=== PATIENT | female | born 1980 | race African-American/Black ===

== ENCOUNTER 2019-01-30 16:53 | Outpatient (CLI) | payer OTHER, MEDICAID | END 2019-01-30 18:07 | disposition home or self-care (01) | LOC: LC 16:53 | PROVIDERS: ATTEND Obstetrics & Gynecology | PROC: 4A1HXCZ Monitoring of Products of Conception, Cardiac Rate, External Approach (ICD-10-PCS; principal; 2019-01-30) | DX: Z34.93 Encounter for supervision of normal pregnancy, unspecified, third trimester (principal) | CPT/HCPCS: 59025 ==

== ENCOUNTER 2019-02-02 15:38 | Outpatient (CLI) | payer OTHER, MEDICAID ==
--- NOTE | 2019-02-02 15:47 | Non Stress Test Report ---
Non Stress Test Datetime Report Generated by CPN: 02/02/2019 15:46 DEMOGRAPHIC EGA NST: 36.4 INDICATION Indication for Study: Ordered by Provider; Other Indication for Study (NST) Other: repeat NST MONITORING Monitor Explained: Monitor Explained; Test Explained; Patient Verbalized Understanding Time on Monitor: 01/30/2019 17:41 Time off Monitor: 01/30/2019 18:02 NST Duration: 21 NST INTERVENTIONS NST Interventions: PO Hydration Physician Notified NST: Dr. Younger BABY A: [id number] BABY A Movement : Present Contraction Frequency : none FHR Baseline : 150 Accelerations : 15X15 Decelerations : None Variability : Moderate 6-25bpm NST Review: Meets Criteria for Reactive NST NST Review and Verified By : ARNALDO Logan NST Results: Reactive NST REPORT Report Trigger: Send Report
--- NOTE | 2019-02-02 16:57 | Non Stress Test Report ---
Non Stress Test Datetime Report Generated by CPN: 02/02/2019 16:56 DEMOGRAPHIC EGA NST: 37.0 INDICATION Indication for Study: Ordered by Provider MONITORING Monitor Explained: Monitor Explained; Test Explained; Patient Verbalized Understanding Time on Monitor: 02/02/2019 16:24 Time off Monitor: 02/02/2019 16:45 NST Duration: 21 NST INTERVENTIONS Physician Notified NST: A.Latif, CNM BABY A Movement : Present Contraction Frequency : None FHR Baseline : 155 Accelerations : 15X15 Decelerations : None Variability : Moderate 6-25bpm NST Review: Meets Criteria for Reactive NST NST Review and Verified By : sautry NST Results: Reactive NST REPORT Report Trigger: Send Report
== END 2019-02-02 16:53 | disposition home or self-care (01) ==
LOC: LC 15:38
PROVIDERS: ATTEND Obstetrics & Gynecology Gynecology
PROC: 4A1HXCZ Monitoring of Products of Conception, Cardiac Rate, External Approach (ICD-10-PCS; principal; 2019-02-02)
DX: Z34.93 Encounter for supervision of normal pregnancy, unspecified, third trimester (principal)

== ENCOUNTER 2019-02-12 12:08 | Outpatient (CLI) | payer OTHER, MEDICAID ==
[2019-02-12 12:38] LABS: APPEARANCE,URINE CLOUDY; BILIRUBIN,URINE NEGATIVE (NEGATIVE); GLUCOSE, URINE >=500 mg/dL (NEGATIVE); KETONES,URINE NEGATIVE (NEGATIVE); LEUKOCYTE ESTERASE,URINE MODERATE (NEGATIVE); NITRITE,URINE NEGATIVE (NEGATIVE); PROTEIN,URINE 30 mg/dL (NEGATIVE); URINE SPECIFIC GRAVITY 1.028
[2019-02-12 12:49] LABS: COLOR,URINE DARK YELLOW
[2019-02-12 12:54] LABS: URINE AMPHETAMINES SCREEN NEGATIVE; URINE BARBITURATES SCREEN NEGATIVE; URINE BENZODIAZEPINES SCREEN NEGATIVE; URINE COCAINE SCREEN NEGATIVE; URINE MARIJUANA (THC) SCREEN NEGATIVE; URINE METHADONE SCREEN NEGATIVE; URINE PHENCYCLIDINE SCREEN NEGATIVE
[2019-02-12 13:32] LABS: EPITHELIALS (WET MOUNT) 3+ EPITHELIALS SEEN; RBCS (WET MOUNT) FEW RBCS SEEN; T.VAGINALIS (WET MOUNT) NO TRICHOMONAS SEEN; WBCS (WET MOUNT) 1+ WBCS SEEN; YEAST (WET MOUNT) NO YEAST SEEN
--- NOTE | 2019-02-12 13:53 | Non Stress Test Report ---
Non Stress Test Datetime Report Generated by CPN: 02/12/2019 13:53 DEMOGRAPHIC EGA NST: 38.3 INDICATION Indication for Study: Ordered by Provider MONITORING Monitor Explained: Monitor Explained; Test Explained; Patient Verbalized Understanding Time on Monitor: 02/12/2019 13:26 Time off Monitor: 02/12/2019 13:46 NST Duration: 20 NST INTERVENTIONS NST Interventions: PO Hydration Physician Notified NST: Dr. Baltazar BABY A: [id number] BABY A Movement : Present Movement : Present Contraction Frequency : 4-35 FHR Baseline : 140 Accelerations : 15X15 Decelerations : Variable Variability : Moderate 6-25bpm NST Review: Meets Criteria for Reactive NST NST Review: Meets Criteria for Reactive NST NST Review and Verified By : Giuseppe Hernandez RN NST Results: Reactive NST Results: Reactive NST REPORT Report Trigger: Send Report
== END 2019-02-12 13:55 | disposition home or self-care (01) ==
LOC: LC 12:08
PROVIDERS: ATTEND Obstetrics & Gynecology
DX: O47.1 False labor at or after 37 completed weeks of gestation (principal); O36.8330 Maternal care for abnormalities of the fetal heart rate or rhythm, third trimester, not applicable or unspecified; O09.523 Supervision of elderly multigravida, third trimester; O99.283 Endocrine, nutritional and metabolic diseases complicating pregnancy, third trimester; E86.0 Dehydration; Z3A.38 38 weeks gestation of pregnancy
CPT/HCPCS: 59025; 80307; 81005; 87210

== ENCOUNTER 2019-02-13 02:43 | Inpatient (IN) | payer OTHER, MEDICAID ==
[2019-02-13 03:09] LABS: APPEARANCE,URINE CLOUDY; BILIRUBIN,URINE NEGATIVE (NEGATIVE); COLOR,URINE YELLOW; GLUCOSE, URINE 150 mg/dL (NEGATIVE); KETONES,URINE NEGATIVE (NEGATIVE); LEUKOCYTE ESTERASE,URINE NEGATIVE (NEGATIVE); NITRITE,URINE NEGATIVE (NEGATIVE); PROTEIN,URINE 100 mg/dL (NEGATIVE); URINE SPECIFIC GRAVITY 1.013
[2019-02-13] MEDS ORDERED: RINGERS SOLUTION,LACTATED 1,000 ML IV PRN ×2 (03:19→06:31)
[2019-02-13 03:31] LABS: URINE AMPHETAMINES SCREEN NEGATIVE; URINE BARBITURATES SCREEN NEGATIVE; URINE BENZODIAZEPINES SCREEN NEGATIVE; URINE COCAINE SCREEN NEGATIVE; URINE MARIJUANA (THC) SCREEN NEGATIVE; URINE METHADONE SCREEN NEGATIVE; URINE PHENCYCLIDINE SCREEN NEGATIVE
[2019-02-13 03:50] LABS: ABSOLUTE EOSINOPHILS # (AUTO) 0.1 10^3/uL (0.0-0.6); ABSOLUTE LYMPHOCYTES (AUTO) 2.3 10^3/uL (0.5-4.7); ABSOLUTE MONOCYTES (AUTO) 0.8 10^3/uL (0.1-1.4); ABSOLUTE NEUT (AUTO) 4.8 10^3/uL (1.7-8.2); BASOPHILS % (AUTO) 0.2 % (0-2); EOSINOPHILS % (AUTO) 1.7 % (0-6); HEMATOCRIT 35.1 % (36.0-47.0); HEMOGLOBIN 11.8 g/dL (12.0-15.5); LYMPHOCYTES % (AUTO) 28.9 % (13-45); MEAN CORPUSCULAR HEMOGLOBIN 29.1 pg (27.0-33.4); MEAN CORPUSCULAR HGB CONC 33.7 g/dL (32.0-36.0); MEAN CORPUSCULAR VOLUME 86 fl (80-97); MONOCYTES % (AUTO) 9.9 % (3-13); PLATELET COUNT 240 10^3/uL (150-450); RED BLOOD COUNT 4.07 10^6/uL (3.72-5.28); RED CELL DISTRIBUTION WIDTH 14.4 % (11.5-14.0); SEGMENTED NEUTROPHILS % (AUTO) 59.3 % (42-78); TOTAL CELLS COUNTED % (AUTO) 100 %
[2019-02-13] MEDS ORDERED: PENICILLIN G POTASSIUM 5,000,000 UNIT in DEXTROSE 5%-WATER 100 ML IV ONE (04:08)
[2019-02-13] MEDS ORDERED: PENICILLIN G-K 5 MILLION UNIT VIAL ONE (04:11)
--- NOTE | 2019-02-13 04:22 | Admission Physical ---
Datetime Report Generated by CPN: 02/13/2019 04:22 CURRENT ADMISSION Chief Complaint: Suspected Ruptured Membranes Indication for Induction: Not Applicable Admit Impression : Term, Intrauterine ; Ruptured Membranes Admit Plan: Admit to Unit; Initiate Section Protocol ALLERGIES Medication Allergies: No Medication Allergies: No Known Allergies (02/13/2019) Latex: No Latex Allergies Food Allergies: No known allergies Environmental Allergies: No known allergies OBSTETRICAL HISTORY EDC: 02/23/2019 00:00 : 3 Para: 2 Term: 0 : 2 Livin Cesareans: 1 Gestational Diabetes: Yes Rh Sensitization: No Incompetent Cervix: No KP: No Infertility: No ART Treatment: No Uterine Anomaly: No IUGR: No Hx Previous C/S: Yes Macrosomia: Yes Hx Loss/Stillborn: No PIH: No Hx : No Placenta Previa/Abruption: No Depression/PP Depression: Yes PTL/PROM: Yes Post Hemorrhage: No Current Procedures: Ultrasound; NST Obstetrical History Comments: G1- 1997 36 weeks GDM, PTD G2- 2013 27 weeks primary c/s NRFHT, GDM, insulin G3- Current IDDM per medical summary one of patient's children is no longer living and states that son was murdered SEE RECORDS Alcohol: No Marijuana : No Cocaine: No Other Illicit Drugs: No Cigarettes: Never Smoker. 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 Surgery: No Heart Disease: No Hosp/Surgery: Yes Autoimmune Disorder: No Anesthetic Complications: No Kidney Disease: No Abnormal Pap Smear: No Neuro/Epilepsy: No Psychiatric Disorders: No Other Medical Diseases: No Hepatitis/Liver Disease: No Significant Family History: No Varicosities/Phlebitis: No Trauma/Violence : No Thyroid Dysfunction: No Medical History Comments: IDDM, obesity bmi 50.3, depression (after sons ), anemia, previous hospitalization r/t previous INFECTIOUS HISTORY Gonorrhea: No Genital Herpes: No Chlamydia: No Syphilis: No Hepatitis: No HIV/AIDS Exposure: No Rash or Viral Illness: No HPV: Yes Infectious History Comments: HPV 2017 PHYSICAL EXAM General: Normal HEENT: Normal Neurologic: Normal Thyroid: Normal Heart: Normal Lungs: Normal Breast: Deferred Back: Normal Abdomen: Normal Genitourinary Exam: Normal Extremities: Normal DTRs: Normal Pelvic Type: Adequate Vital Signs: Reviewed VAGINAL EXAM Dilatation: 2 Effacement: 50 MEMBRANES Membranes: Ruptured FETUS A EGA: 38.4 Monitoring: External US FHR- Baseline: 120 Variability: Moderate 6-25bpm Decelerations: None FHR Category: Category I Presentation: Vertex Admit Comment: plan for PLANS FOR LABOR AND DELIVERY Labor and Delivery: None Pain Management: Spinal Feeding Preference: Breast Benefit of Breast Feed Discussed: Yes Circumcision: Yes INFORMED CONSENT Signature: with User ID: [email or web address]
[2019-02-13] MEDS ORDERED: CITRIC ACID/SODIUM CITRATE ORAL SOLN 15 ML UDCUP ONE (04:45)
[2019-02-13] MEDS ORDERED: CEFAZOLIN 2 GM/D5W RTU 2 GM/50 ML RTUPB IV ONE (04:46)
[2019-02-13] MEDS ORDERED: EPHEDRINE SULFATE INJ 50 MG/1 ML AMPULE ONE (04:47)
[2019-02-13] MEDS ORDERED: OXYTOCIN 10 UNIT/ML VIAL ONE (04:47)
[2019-02-13] MEDS ORDERED: KETOROLAC TROMETHAMINE INJ/PF 30 MG/1 ML SDV ONE (04:47)
[2019-02-13] MEDS ORDERED: FENTANYL CITRATE INJ/PF 100 MCG/2 ML AMPUL ONE ×2 (04:47→06:16)
[2019-02-13] MEDS ORDERED: PROPOFOL INJ 200 MG/20 ML VIAL IV ONE (04:47)
[2019-02-13] MEDS ORDERED: MIDAZOLAM 2 MG/2 ML INJ ONE (04:48)
[2019-02-13] MEDS ORDERED: ACETAMINOPHEN 1,000 MG/100 ML RTUPB IV ONE (04:48)
[2019-02-13] MEDS ORDERED: METHYLERGONOVINE MALEATE INJ/PF 0.2 MG/1 ML AMPULE ONE (04:48)
[2019-02-13] MEDS ORDERED: ONDANSETRON HCL INJ/PF 4 MG/2 ML SDV ONE (04:48)
[2019-02-13] MEDS ORDERED: PHENYLEPHRINE HCL INJ/PF 10 MG/1 ML SDV ONE (04:49)
[2019-02-13] MEDS ORDERED: MORPHINE SULFATE 10 MG/ML INJ IV PRN (06:13)
[2019-02-13] MEDS ORDERED: DIPHENHYDRAMINE HCL 50 MG/ML VIAL IV PRN (06:13)
[2019-02-13] MEDS ORDERED: ONDANSETRON HCL INJ/PF 4 MG/2 ML SDV IV PRN (06:13)
[2019-02-13] MEDS ORDERED: MEPERIDINE HCL/PF INJ 25 MG/1 ML DISP.SYRIN IV PRN (06:13)
[2019-02-13] MEDS ORDERED: PROMETHAZINE HCL INJ 25 MG/1 ML VIAL IV PRN ×3 (06:13→06:31)
[2019-02-13] MEDS ORDERED: FENTANYL CITRATE INJ/PF 100 MCG/2 ML AMPUL IV PRN ×3 (06:13)
[2019-02-13] MEDS ORDERED: OXYCODONE-ACETAMINOPHEN 5-325 MG TABLET PO PRN ×4 (06:13→06:31)
[2019-02-13] MEDS ORDERED: INSULIN LISPRO 100 UNIT/ML 3 ML VIAL SUBCUT SCH (06:30)
[2019-02-13] MEDS ORDERED: SIMETHICONE 80 MG TAB.CHEW PO PRN (06:31)
[2019-02-13] MEDS ORDERED: ACETAMINOPHEN 325 MG TABLET PO PRN (06:31)
[2019-02-13] MEDS ORDERED: HYDROMORPHONE HCL INJ/PF 2 MG/ML AMPULE IV PRN (06:31)
[2019-02-13] MEDS ORDERED: ACETAMINOPHEN 1,000 MG/100 ML RTUPB IV PRN (06:31)
[2019-02-13] MEDS ORDERED: OXYTOCIN/NORMAL SALINE 20 UNIT/1,000 ML RTUINJ IV PRN (06:31)
[2019-02-13] MEDS ORDERED: DIPH/PERTUSS(ACELL)/TETANUS VAC/PF 0.5 ML SYR (>=10YO) IM PRN ×2 (06:31→07:30)
[2019-02-13] MEDS ORDERED: MEASLES,MUMPS&RUBELLA VACC/PF 0.5 ML VIAL SUBCUT PRN ×2 (06:31→07:30)
--- NOTE | 2019-02-13 06:38 | Operative Report ---
Operative Report DATE OF SURGERY: 02/13/19 PREOPERATIVE DIAGNOSIS: Ruptured membranes at term with contractions and repeat POSTOPERATIVE DIAGNOSIS: Same OPERATION: Repeat via low transverse uterine incision SURGEON: TORRI SANCHEZ ANESTHESIA: GA TISSUE REMOVED OR ALTERED: Placenta COMPLICATIONS: None ESTIMATED BLOOD LOSS: 500 cc INTRAOPERATIVE FINDINGS: Viable male 8 pounds 1 ounce Apgars 8 and 9 PROCEDURE: Patient was taken to the OR and placed in supine position after her spinal anesthesia. The tractis device was placed to hold her pannus. She is prepared and draped in sterile fashion. Irby was placed for drainage of the bladder. Low transverse incision was made and carried down the level of the fascia. The fascial incision was made with knife and extended bilaterally with curved Cortes scissors. The fascia was off the rectus muscles using sharp and blunt dissection. The rectus muscles are in the midline. At this point she began having pain and underwent general anesthesia. The peritoneum was entered without incident. Bladder blade was placed in uterine segment was identified. A low transverse incision was made creating a bladder flap. Bladder blade was placed low transverse uterine incision was made with the knife and extended with fingertips. The baby was delivered with some fundal pressure and the assistance of a Kiwi vacuum with the pressure in the green and one pull with no pop offs. Mouth and nose were suctioned free. The cord is doubly clamped and cut. Baby is passed off to the underwriting support manager in attendance. The placenta was manually extracted with trailing membranes. The uterus could not be externalized. Uterine contents wiped free. Uterus was closed with a running locking layer of 0 chromic suture using the second layer to imbricate the first completing a double layer closure of the uterus. The serosa was closed with a running 2-0 chromic stitch. The pelvis was irrigated and suctioned free of fluid the uterus was replaced in the abdomen. The abdominal wall peritoneum was closed with running 2-0 chromic stitch. Fascia was closed with a running 0 Vicryl in 2 segments. Deena's layer was brought together with 0 plain gut stitch and the skin was closed with running subcuticular 4-0 undyed Vicryl stitch. The wound was dressed mother and baby did well.
[2019-02-13] MEDS ORDERED: NPH HUMAN INSULIN ISOPHANE SUBCUT SCH (08:00)
[2019-02-13] MEDS ORDERED: [UNRECOGNIZED DRUG - OTHER] SUBCUT SCH (08:00)
[2019-02-13] MEDS ORDERED: PENICILLIN G POTASSIUM 2,500,000 UNIT in DEXTROSE 5%-WATER 50 ML IV SCH (08:09)
[2019-02-13] MEDS ORDERED: MORPHINE SULFATE 10 MG/ML INJ ONE (08:19)
[2019-02-13] MEDS: INSULIN NPH (ISOPHANE), HUMAN 100 UNIT/ML 3 ML SUBCUT SCH ×2 (09:40→17:01)
[2019-02-13] MEDS ORDERED: FOLIC ACID PO SCH (10:00)
[2019-02-13] MEDS ORDERED: PNV CALCIUM PO SCH (10:00)
[2019-02-13] MEDS ORDERED: IRON PO SCH (10:00)
[2019-02-13] MEDS: PRENATAL VITAMIN W DHA CAPSULE PO SCH (11:06)
[2019-02-13] MEDS: DOCUSATE SODIUM 100 MG CAPSULE PO SCH ×2 (11:06→17:10)
[2019-02-13] MEDS: CEFAZOLIN 1 GM/D5W RTU 1 GM/50 ML RTUPB IV SCH ×3 (11:15→23:09)
[2019-02-13] MEDS: IBUPROFEN 800 MG TABLET PO SCH ×3 (11:16→23:08)
[2019-02-13] MEDS ORDERED: (PENDING PHARMACY ID) (Nph, Human Insulin Isophane [Novolin N (Nph) Insulin 100 Unit/Ml] 1 SUBCUT SCH (16:00)
[2019-02-13] MEDS: INSULIN LISPRO 100 UNIT/ML 3 ML VIAL SUBCUT SCH (16:59)
[2019-02-14] MEDS: CEFAZOLIN 1 GM/D5W RTU 1 GM/50 ML RTUPB IV SCH (05:55)
[2019-02-14] MEDS: IBUPROFEN 800 MG TABLET PO SCH ×4 (05:56→22:59)
[2019-02-14 06:12] LABS: MEAN CORPUSCULAR HEMOGLOBIN 29.3 pg (27.0-33.4); MEAN CORPUSCULAR HGB CONC 34.1 g/dL (32.0-36.0); MEAN CORPUSCULAR VOLUME 86 fl (80-97); PLATELET COUNT 189 10^3/uL (150-450); RED BLOOD COUNT 3.03 10^6/uL (3.72-5.28); RED CELL DISTRIBUTION WIDTH 14.7 % (11.5-14.0); WHITE BLOOD COUNT 10.4 10^3/uL (4.0-10.5)
[2019-02-14 06:20] LABS: HEMOGLOBIN 8.9 g/dL (12.0-15.5)
[2019-02-14] MEDS: DOCUSATE SODIUM 100 MG CAPSULE PO SCH ×2 (10:35→17:40)
[2019-02-14] MEDS: PRENATAL VITAMIN W DHA CAPSULE PO SCH (10:35)
[2019-02-14] MEDS: INSULIN NPH (ISOPHANE), HUMAN 100 UNIT/ML 3 ML SUBCUT SCH ×2 (10:35→17:40)
--- NOTE | 2019-02-14 11:05 | PDOC PROGRESS REPORT ---
Subjective-OB Progress Note for:: 02/14/19 Subjective: reports bleeding slowing,pain controlled with current meds, denies needs. states she is passing gas Physical Exam (OB) Vital Signs: Temp Pulse Resp BP Pulse Ox 99.5 F 116 H 16 122/51 L 99 02/14/19 07:48 02/14/19 07:48 02/14/19 07:48 02/14/19 07:48 02/14/19 07:48 Intake & Output 02/13/19 02/14/19 02/15/19 06:59 06:59 06:59 Intake Total 3500 300 Output Total 1360 Balance 2140 300 Weight 140.7 kg - Dressing Removed: No - op site with mod amount serosanguinous drainage Incision: Dressing - slightly loose, RN agrees to change - Abdomen Description: Tender, Soft, Round Hernia Present: No Fundal Description: Firm, Midline Fundal Height: u/u - u/2 - Abdominal Distension: No distension Tenderness: Nontender - Extremities Lower extremities: Yaneth's sign - neg Calf: Normal, Nontender Objective-Diagnostic Laboratory: 02/14/19 05:55 02/14/19 05:55 WBC 10.4 RBC 3.03 L Hgb 8.9 L D Hct 26.0 L MCV 86 MCH 29.3 MCHC 34.1 RDW 14.7 H Plt Count 189 Assessment and Plan(PN) - Assessment and Plan (1) S/P repeat low transverse Is this a current diagnosis for this admission?: Yes - Time Spent with Patient Time with patient: Less than 15 minutes Medications reviewed and adjusted accordingly: Yes - Disposition Anticipated Discharge: Home Within: within 48 hours
[2019-02-14] MEDS: INSULIN LISPRO 100 UNIT/ML 3 ML VIAL SUBCUT SCH (17:41)
[2019-02-15] MEDS: IBUPROFEN 800 MG TABLET PO SCH ×3 (05:03→18:38)
[2019-02-15] MEDS: DOCUSATE SODIUM 100 MG CAPSULE PO SCH ×2 (09:12→18:39)
[2019-02-15] MEDS: PRENATAL VITAMIN W DHA CAPSULE PO SCH (09:12)
[2019-02-15] MEDS: INSULIN NPH (ISOPHANE), HUMAN 100 UNIT/ML 3 ML SUBCUT SCH ×2 (09:13→18:20)
--- NOTE | 2019-02-15 09:56 | PDOC PROGRESS REPORT ---
Addendum entered and electronically signed by CHEMO COLON CNM 02/15/19 09:59: Subjective-OB Progress Note for:: 02/15/19 - POD #2, doing well, s/p Rpt c/s. pt with Hx IDDM, anemia, depression, doing well today, no complaints, states baby has to start on antibiotics today. A+, Rubella Immune Addendum entered and electronically signed by CHEMO COLON CNM 02/15/19 09:57: Assessment and Plan(PN) - Assessment and Plan (1) Anemia, Is this a current diagnosis for this admission?: Yes (2) S/P repeat low transverse Is this a current diagnosis for this admission?: Yes - Time Spent with Patient Medications reviewed and adjusted accordingly: Yes - Disposition Anticipated Discharge: Home Original Note: Subjective-OB Progress Note for:: 02/15/19 - POD #2, s/p Rpt , , pt states baby has to go on antibiotics today. A+, Rubella immune Physical Exam (OB) Vital Signs: Temp Pulse Resp BP Pulse Ox 98.2 F 116 H 16 141/73 H 98 02/15/19 08:31 02/15/19 08:31 02/15/19 08:31 02/15/19 08:31 02/15/19 08:31 Intake & Output 02/14/19 02/15/19 02/16/19 06:59 06:59 06:59 Intake Total 3500 1100 Output Total 1360 Balance 2140 1100 - General General Appearance: Appears well, Alert In distress: None - PIH/Pre-Eclampsia DTR's: 2 + Clonus: Negative Headache: Absent Epigastric Pain: No Visual Changes: No - Dressing Removed: No - dressing in place, no drainage noted Incision: Dressing - slightly loose, RN agrees to change Closure Type: Sutures - Lochia Lochia Amount: Scant < 10 ml Lochia Color: Rubra/Red - Abdomen Description: Soft, Round Hernia Present: No Fundal Description: Firm Fundal Height: u/u - u/2 - Respiratory Respiratory Status: No respiratory distress - Abdominal Inspection: Normal Distension: No distension - Genitourinary Genitourinary Note: voiding - Extremities Upper extremity: Normal inspection Lower extremities: Edema - trace - Neurological Cognition: Normal Orientation: AAOx4 - Psychological Associated symptoms: Normal affect, Normal mood - Skin Skin Temperature: Warm Skin Moisture: Dry Objective-Diagnostic Laboratory: 02/14/19 05:55 Assessment and Plan(PN) - Assessment and Plan (1) Anemia, Is this a current diagnosis for this admission?: Yes (2) S/P repeat low transverse Is this a current diagnosis for this admission?: Yes - Time Spent with Patient Time with patient: Less than 15 minutes Medications reviewed and adjusted accordingly: Yes - Disposition Anticipated Discharge: Home Within: within 24 hours
[2019-02-15] MEDS: FERROUS SULFATE 325 MG TABLET PO SCH (11:27)
[2019-02-15] MEDS: INSULIN LISPRO 100 UNIT/ML 3 ML VIAL SUBCUT SCH (18:20)
[2019-02-16] MEDS: IBUPROFEN 800 MG TABLET PO SCH ×3 (00:02→13:15)
[2019-02-16] MEDS: INSULIN NPH (ISOPHANE), HUMAN 100 UNIT/ML 3 ML SUBCUT SCH (07:45)
[2019-02-16] MEDS ORDERED: PROMETHAZINE HCL INJ 25 MG/1 ML VIAL IV PRN (08:30)
[2019-02-16 09:01] VITALS: BP 152/70
[2019-02-16] MEDS: FERROUS SULFATE 325 MG TABLET PO SCH (09:42)
[2019-02-16] MEDS: DOCUSATE SODIUM 100 MG CAPSULE PO SCH (09:42)
[2019-02-16] MEDS: PRENATAL VITAMIN W DHA CAPSULE PO SCH (09:42)
--- NOTE | 2019-02-16 10:12 | PDOC PROGRESS REPORT ---
Subjective-OB Progress Note for:: 02/16/19 Subjective: Ready for discharge. Physical Exam (OB) Vital Signs: Temp Pulse Resp BP Pulse Ox 97.9 F 101 H 20 152/70 H 97 02/16/19 08:59 02/16/19 08:59 02/16/19 08:59 02/16/19 08:59 02/16/19 08:59 Intake & Output 02/15/19 02/16/19 02/17/19 06:59 06:59 06:59 Intake Total 1100 1400 Balance 1100 1400 - PIH/Pre-Eclampsia DTR's: 2 + Clonus: Negative Headache: Absent Epigastric Pain: No Visual Changes: No - Dressing Removed: Yes Incision: Open - Lochia Lochia Amount: Scant < 10 ml Lochia Color: Rubra/Red - Abdomen Description: Soft, Round Hernia Present: No Bowel Sounds: Normoactive Flatus Presence: Present Stool: Yes Fundal Description: Firm, Midline Fundal Height: u/u - u/2 Objective-Diagnostic Laboratory: 02/14/19 05:55 Assessment and Plan(PN) - Time Spent with Patient Medications reviewed and adjusted accordingly: Yes - Disposition Anticipated Discharge: Home
--- NOTE | 2019-02-16 10:21 | PDOC DISCHARGE SUMMARY ---
Final Diagnosis Discharge Date: 02/16/19 - Final Diagnosis (1) Anemia, Is this a current diagnosis for this admission?: Yes (2) Gestational IDDM Is this a current diagnosis for this admission?: Yes (3) Morbid obesity Is this a current diagnosis for this admission?: Yes (4) Positive GBS test Is this a current diagnosis for this admission?: Yes (5) Is this a current diagnosis for this admission?: Yes (6) S/P repeat low transverse Is this a current diagnosis for this admission?: Yes Discharge Data - Discharge Medication Prescriptions: Oxycodone HCl/Acetaminophen [Percocet 5-325 mg Tablet] 1 tab PO Q4HP PRN #20 tablet PRN Reason: Ferrous Sulfate [Feosol 325 mg Tablet] 325 mg PO BID #60 tablet Ibuprofen [Motrin 800 mg Tablet] 800 mg PO Q6 #30 tablet Home Medications: Pnv,Calcium 72/Iron/Folic Acid [ Plus Tablet] 1 each PO DAILY 01/30/19 Ferrous Sulfate [Feosol 325 mg Tablet] 325 mg PO BID #60 tablet 02/16/19 Ibuprofen [Motrin 800 mg Tablet] 800 mg PO Q6 #30 tablet 02/16/19 Oxycodone HCl/Acetaminophen [Percocet 5-325 mg Tablet] 1 tab PO Q4HP PRN #20 tablet 02/16/19 Gestational Age: 38.4 wks Reason(s) for Admission: Ceasarean Section-Repeat Procedures: Ultrasound Intrapartum Procedure(s): : Low Cervical, Transverse - [place] Data Baby 1 Male at 1 minute: 8 at 5 minutes: 9 Weight: 3.657 kg Home with Mother: Yes Complications: No - Diagnosis Test Laboratory: Temp Pulse Resp BP Pulse Ox 97.9 F 101 H 20 152/70 H 97 02/16/19 08:59 02/16/19 08:59 02/16/19 08:59 02/16/19 08:59 02/16/19 08:59 02/13/19 02/13/19 02/14/19 02:55 03:32 05:55 RBC 4.07 3.03 L Hgb 11.8 L 8.9 L D Hct 35.1 L 26.0 L Urine Opiates Screen NEGATIVE - Discharge information/Instructions Discharge Activity: Activity As Tolerated, Balance Activity w/Rest, No Lifting Over 10 Pounds, No Lifting/Push/Pulling, Non-Ambulatory Child, Pelvic Rest, Slowly Increase Activity, No tub bath Discharge Diet: Regular Disposition: HOME, SELF-CARE Follow up with: [facility] in: 1, Weeks
--- NOTE | 2019-02-17 11:33 | Admission Physical ---
Datetime Report Generated by CPN: 02/17/2019 11:33 CURRENT ADMISSION Chief Complaint: Suspected Ruptured Membranes Indication for Induction: Not Applicable Admit Impression : Term, Intrauterine ; Ruptured Membranes Admit Plan: Admit to Unit; Initiate Section Protocol ALLERGIES Medication Allergies: No Medication Allergies: No Known Allergies (02/13/2019) Medication Allergies: No Known Allergies (01/30/2019) Latex: No Latex Allergies Food Allergies: No known allergies Environmental Allergies: No known allergies OBSTETRICAL HISTORY EDC: 02/23/2019 00:00 : 3 Para: 2 Term: 0 : 2 Livin Cesareans: 1 Gestational Diabetes: Yes Rh Sensitization: No Incompetent Cervix: No KP: No Infertility: No ART Treatment: No Uterine Anomaly: No IUGR: No Hx Previous C/S: Yes Macrosomia: Yes Hx Loss/Stillborn: No PIH: No Hx : No Placenta Previa/Abruption: No Depression/PP Depression: Yes PTL/PROM: Yes Post Hemorrhage: No Current Procedures: Ultrasound; NST Obstetrical History Comments: G1- 1997 36 weeks GDM, PTD G2- 2013 27 weeks primary c/s NRFHT, GDM, insulin G3- Current IDDM per medical summary one of patient's children is no longer living and states that son was murdered SEE RECORDS Alcohol: No Marijuana : No Cocaine: No Other Illicit Drugs: No Cigarettes: Never Smoker. [id number] MEDICAL HISTORY Diabetes: Yes Diabetes Type: Type I - IDDM Blood Transfusion: No Pulmonary Disease (Asthma, TB): No Breast Disease: No Hypertension: No Hepatologist Surgery: No Heart Disease: No Hosp/Surgery: Yes Autoimmune Disorder: No Anesthetic Complications: No Kidney Disease: No Abnormal Pap Smear: No Neuro/Epilepsy: No Psychiatric Disorders: No Other Medical Diseases: No Hepatitis/Liver Disease: No Significant Family History: No Varicosities/Phlebitis: No Trauma/Violence : No Thyroid Dysfunction: No Medical History Comments: IDDM, obesity bmi 50.3, depression (after sons ), anemia, previous hospitalization r/t previous INFECTIOUS HISTORY Gonorrhea: No Genital Herpes: No Chlamydia: No Syphilis: No Hepatitis: No HIV/AIDS Exposure: No Rash or Viral Illness: No HPV: Yes Infectious History Comments: HPV 2017 PHYSICAL EXAM General: Normal HEENT: Normal Neurologic: Normal Thyroid: Normal Heart: Normal Lungs: Normal Breast: Deferred Back: Normal Abdomen: Normal Genitourinary Exam: Normal Extremities: Normal DTRs: Normal Pelvic Type: Adequate Vital Signs: Reviewed VAGINAL EXAM Dilatation: 2 Effacement: 50 MEMBRANES Membranes: Ruptured FETUS A EGA: 38.4 Monitoring: External US FHR- Baseline: 120 Variability: Moderate 6-25bpm Decelerations: None FHR Category: Category I Presentation: Vertex Admit Comment: plan for PLANS FOR LABOR AND DELIVERY Labor and Delivery: None Pain Management: Spinal Feeding Preference: Breast Benefit of Breast Feed Discussed: Yes Circumcision: Yes INFORMED CONSENT Signature: with User ID: [email or web address]
== END 2019-02-16 14:00 | disposition home or self-care (01) | DRG 788 ==
LOC: LC 02:43 → LR 03:27 → 2S 09:03
PROVIDERS: ADMIT Obstetrics & Gynecology; ATTEND Obstetrics & Gynecology
PROC: 10D00Z1 Extraction of Products of Conception, Low, Open Approach (ICD-10-PCS; principal; 2019-02-13)
DX: O34.211 Maternal care for low transverse scar from previous cesarean delivery (principal); O24.424 Gestational diabetes mellitus in childbirth, insulin controlled; O99.824 Streptococcus B carrier state complicating childbirth; O99.02 Anemia complicating childbirth; D64.9 Anemia, unspecified; F32.9 Major depressive disorder, single episode, unspecified; O99.344 Other mental disorders complicating childbirth; O99.214 Obesity complicating childbirth; E66.01 Morbid (severe) obesity due to excess calories; Z37.0 Single live birth; Z3A.38 38 weeks gestation of pregnancy
CPT/HCPCS: 1961; 36415; 59025; 80307; 81005; 82962; 84112; 85025; 85027; 86592; 86850; 86900; 86901; 94760; 94799; J0131; J0690; J1815; J1885; J2210; J2250; J2270; J2370; J2405; J2540; J2590; J2704; J3010; J3490; J7120

== ENCOUNTER 2019-08-17 16:59 | Emergency (ER) | payer MEDICAID, OTHER ==
[2019-08-17] MEDS ORDERED: KETOROLAC TROMETHAMINE 60 MG/2 ML SDV IM ONE (17:13)
[2019-08-17 17:18] VITALS: BP 145/82
--- NOTE | 2019-08-17 17:18 | ER Document Report ---
HPI - HPI Time Seen by Provider: 08/17/19 17:04 Notes: Patient is a 39-year-old female with no significant past medical history who presents complaining of left low back pain that does not radiate that began 2 days ago without known injury. Patient states that times the pain feels like a cramping, but is relatively constant otherwise. She is able to eat and drink without difficulty. She is urinating normally and having normal bowel movements. No vaginal discharge, odor, or bleeding. Patient denies any . Denies drug allergies. No history of spinal abscess or IV drug abuse. Bending and twisting does make the pain worse. Denies any headache, fever, neck pain, URI, sore throat, chest pain, palpitations, syncope, cough, shortness of breath, wheeze, dyspnea, abdominal pain, nausea/vomiting/diarrhea, urinary retention, dysuria, hematuria, loss of control of bowel or bladder, numbness/tingling, saddle anesthesia, muscle paralysis/weakness, or rash. - ROS Systems Reviewed and Negative: Yes All other systems reviewed and negative Past Medical History - Social History Smoking Status: Never Smoker Family History: Reviewed & Not Pertinent Vertical Provider Document - CONSTITUTIONAL Agree With Documented VS: Yes Notes: PHYSICAL EXAMINATION: GENERAL: Well-appearing, well-nourished and in no acute distress. LUNGS: Breath sounds clear to auscultation bilaterally and equal. No wheezes rales or rhonchi. HEART: Regular rate and rhythm without murmurs, rubs, gallops. ABDOMEN: Soft, nontender, nondistended abdomen. No guarding, no rebound. No masses appreciated. Normal bowel sounds present. No CVA tenderness bilaterally. No pulsatile mass Musculoskeletal: LE's b/l: FROM to passive/active. Strength 5+/5. No deficits noted. No bony tenderness of extremities. Back: FROM to passive/active. Strength 5+/5. No vertebral point tenderness, stepoffs, or deformities. No other bony tenderness, erythema, swelling, or ecchymosis. SLR negative b/l. + reproducible/mild tenderness to the L- paraspinal mm left side. Mild spasming. No SI jt tenderness. No foot drop Extremities: No cyanosis, clubbing, or edema b/l. Peripheral pulses 2+. Capillary refill less than 2 seconds. NEUROLOGICAL: Normal speech, normal gait. Normal sensory, motor exams. Reflexes 2+ b/l. PSYCH: Normal mood, normal affect. SKIN: Warm, Dry, normal turgor, no rashes or lesions noted. - INFECTION CONTROL TRAVEL OUTSIDE OF THE [place] IN LAST 30 DAYS: No Course - Re-evaluation Re-evalutation: 08/17/19 17:15 Patient is an afebrile, well-hydrated, 39-year-old female who presents to the ED with left low back pain, suspect benign. Vitals are acceptable. PE is otherwise unremarkable for any focal neurological deficits. Patient was given Toradol. She has no significant tachycardia, tachypnea, or hypoxia. She is nontoxic-appearing and is tolerating p.o. without difficulties. There are no signs of infection. No other red flag symptoms noted. No other labs or imaging warranted at this time based on H&P. Low suspicion for any meningitis, fracture, expanding/ruptured AAA, cauda equina syndrome, epidural mass lesion/abscess, herniated disc causing severe spinal stenosis, or other systemic infection at this time. Patient is aware that this condition can change from initial presentation and that she needs monitor symptoms closely for any acute changes. I will send her home with a prescription for robaxin and motrin. Conservative measures otherwise for symptoms. Recheck with your PCM in 3-5 days. Consider consult with orthopedic/physical therapy. Return to the ED with any worsening/concerning symptoms otherwise as reviewed discharge. Patient is in agreement. Discharge - Discharge Clinical Impression: Left low back pain Qualifiers: Chronicity: acute Sciatica presence: without sciatica Qualified Code(s): M54.5 - Low back pain Condition: Stable Disposition: HOME, SELF-CARE Instructions: Low Back Pain ([facility]), Muscle Relaxers ([facility]) Additional Instructions: Rest, Ice Tylenol/ibuprofen as needed Light stretches daily Strength exercises as able Moist heat and massage may help F/u with your PCP in 3-5 days for a recheck Consider consult(s) with Orthopedics/physical therapy for ongoing/worsening symptoms Return to the ED with any worsening symptoms and/or development of fever, headache, chest pain, palpitations, syncope, shortness of breath, trouble breathing, abdominal pain, n/v/d, blood in stool/urine, loss of control of bowel/bladder, urinary retention, muscle weakness/paralysis, saddle anesthesia, numbness/tingling, or other worsening symptoms that are concerning to you. Prescriptions: Ibuprofen [Motrin 800 mg Tablet] 800 mg PO Q8H PRN #15 tab PRN Reason: Methocarbamol [Robaxin 750 mg Tablet] 750 mg PO TID PRN #10 tablet PRN Reason: Forms: Elevated Blood Pressure Referrals: [facility] [Provider Group] - Follow up as needed
== END 2019-08-17 17:36 | disposition home or self-care (01) ==
LOC: ER 16:59
DX: M54.5 Low back pain (principal)
CPT/HCPCS: J1885

== ENCOUNTER 2019-08-25 16:53 | Emergency (ER) | payer OTHER ==
--- NOTE | 2019-08-25 17:06 | ER Document Report ---
ED Medical Screen (RME) - General Stated Complaint: VAGINAL PAIN Time Seen by Provider: 08/25/19 17:01 TRAVEL OUTSIDE OF THE [place] IN LAST 30 DAYS: No - HPI Notes: 08/25/19 17:05 Patient is a 39-year-old female who presents complaining of vaginal pain, itching, spotting over the past several days. Patient states that when she stands up she feels like a lot of pressure in her vaginal area. She is also been having some lower pelvic pains. No fever. I have treated and performed a rapid initial assessment of this patient. A comprehensive ED assessment and evaluation of the patient, analysis of test results and completion of medical decision making process will be conducted by additional ED providers. PHYSICAL EXAMINATION: GENERAL: Well-appearing, well-nourished and in no acute distress. A&Ox4. Answers questions appropriately. - Related Data Allergies/Adverse Reactions: No Known Allergies Allergy (Verified 08/25/19 16:58)
[2019-08-25 17:42] LABS: ABSOLUTE EOSINOPHILS # (AUTO) 0.1 10^3/uL (0.0-0.6); ABSOLUTE LYMPHOCYTES (AUTO) 3.2 10^3/uL (0.5-4.7); ABSOLUTE MONOCYTES (AUTO) 0.4 10^3/uL (0.1-1.4); ABSOLUTE NEUT (AUTO) 2.5 10^3/uL (1.7-8.2); BASOPHILS % (AUTO) 0.7 % (0-2); EOSINOPHILS % (AUTO) 1.8 % (0-6); HEMATOCRIT 42.8 % (36.0-47.0); HEMOGLOBIN 14.2 g/dL (12.0-15.5); LYMPHOCYTES % (AUTO) 51.5 % (13-45); MEAN CORPUSCULAR HEMOGLOBIN 28.6 pg (27.0-33.4); MEAN CORPUSCULAR HGB CONC 33.3 g/dL (32.0-36.0); MEAN CORPUSCULAR VOLUME 86 fl (80-97); MONOCYTES % (AUTO) 6.7 % (3-13); PLATELET COUNT 261 10^3/uL (150-450); RED BLOOD COUNT 4.98 10^6/uL (3.72-5.28); RED CELL DISTRIBUTION WIDTH 14.2 % (11.5-14.0); SEGMENTED NEUTROPHILS % (AUTO) 39.3 % (42-78); TOTAL CELLS COUNTED % (AUTO) 100 %; WHITE BLOOD COUNT 6.3 10^3/uL (4.0-10.5)
[2019-08-25 18:01] LABS: ALBUMIN 4.6 g/dL (3.5-5.0); ALKALINE PHOSPHATASE 74 U/L (38-126); ANION GAP 14 (5-19); ASPARTATE AMINO TRANSFERASE 20 U/L (14-36); BILIRUBIN,DIRECT 0.2 mg/dL (0.0-0.4); BILIRUBIN,TOTAL 0.5 mg/dL (0.2-1.3); BLOOD UREA NITROGEN 12 mg/dL (7-20); CALCIUM 10.1 mg/dL (8.4-10.2); CARBON DIOXIDE 23 mmol/L (22-30); CHLORIDE 100 mmol/L (98-107); GLUCOSE 372 mg/dL (75-110); POTASSIUM 4.5 mmol/L (3.6-5.0); TOTAL PROTEIN 7.7 g/dL (6.3-8.2)
[2019-08-25 18:16] LABS: APPEARANCE,URINE CLEAR; BILIRUBIN,URINE NEGATIVE (NEGATIVE); COLOR,URINE YELLOW; GLUCOSE, URINE >=500 mg/dL (NEGATIVE); KETONES,URINE NEGATIVE (NEGATIVE); PROTEIN,URINE NEGATIVE (NEGATIVE); URINE SPECIFIC GRAVITY 1.033; UROBILINOGEN,URINE NEGATIVE mg/dL (<2.0)
[2019-08-25 18:51] LABS: BACTERIA (WET MOUNT) 4+ BACTERIA SEEN; T.VAGINALIS (WET MOUNT) NO TRICHOMONAS SEEN; WBCS (WET MOUNT) 1+ WBCS SEEN; YEAST (WET MOUNT) YEAST SEEN
--- NOTE | 2019-08-25 18:57 | RADIOLOGY REPORT (SQ) ---
EXAM DESCRIPTION: U/S NON OB PEL TV W/DOPPLER COMPLETED DATE/TIME: 08/25/2019 6:47 pm REASON FOR STUDY: pelvic pain COMPARISON: None. TECHNIQUE: Dynamic and static grayscale images acquired of the pelvis via transvaginal approach and recorded on PACS. Additional selected color Doppler and spectral images recorded. LIMITATIONS: None. FINDINGS: UTERUS: Contour normal. No mass. ENDOMETRIAL STRIPE: No focal or generalized thickening. No masses. CERVIX: 2.5 cm. RIGHT OVARY AND DOPPLER: Ovary not seen. LEFT OVARY AND DOPPLER: Ovary not seen. FREE FLUID: None noted. OTHER: No other significant finding. MEASUREMENTS: UTERUS: 9.3 x 4.3 x 5.6 cm. ENDOMETRIAL STRIPE: 7 mm. RIGHT OVARY: Ovary not seen. LEFT OVARY: Ovary not seen. IMPRESSION: The uterus is normal. The ovaries could not be seen. TECHNICAL DOCUMENTATION: JOB ID: [id number]- All Rights Reserved Rev Reading location - IP/workstation name: [email or web address]
--- NOTE | 2019-08-25 19:00 | ER Document Report ---
ED General - General Chief Complaint: Vaginal Pain Stated Complaint: VAGINAL PAIN Time Seen by Provider: 08/25/19 17:01 Mode of Arrival: Ambulatory Information source: Patient Notes: This 39-year-old female presents emergency department with complaints of pelvic pressure. Reports she had the same feeling last month before she started her menses. She took [id number] Monistat without relief of symptoms. She reports that she started her menses on August 07 and the feeling stopped. She reported started spotting yesterday reports some vaginal discharge and now she is having that vaginal pelvic pressure feeling. Denies pain with void. Denies fever vomiting diarrhea. Patient has history of C-sections. TRAVEL OUTSIDE OF THE [place] IN LAST 30 DAYS: No - HPI Onset: Other Onset/Duration: Persistent Quality of pain: Pressure Associated symptoms: None Exacerbated by: Denies Relieved by: Denies Similar symptoms previously: Yes Recently seen / treated by doctor: No - Related Data Allergies/Adverse Reactions: No Known Allergies Allergy (Verified 08/25/19 16:58) Past Medical History - General Information source: Patient Last Menstrual Period: 08/08/19 - Social History Smoking Status: Never Smoker Chew tobacco use (# tins/day): No Frequency of alcohol use: None Drug Abuse: None Lives with: Family Family History: DM - MOTHER Patient has suicidal ideation: No Patient has homicidal ideation: No Endocrine Medical History: Reports: Other - gestational diabetes Past Surgical History: Reports: Hx Appendectomy, Hx Section - x2 Review of Systems - Review of Systems Notes: Review HPI for review of systems., All other systems negative Physical Exam - Vital signs Vitals: Temp Pulse Resp BP Pulse Ox 98.3 F 114 H 18 146/95 H 97 08/25/19 16:57 08/25/19 16:57 08/25/19 16:57 08/25/19 16:57 08/25/19 16:57 - Notes Notes: PHYSICAL EXAMINATION: GENERAL: Well-appearing and in no acute distress HEAD: Atraumatic, normocephalic. EYES: , extraocular movements intact, sclera anicteric, conjunctiva are normal. ENT: nares patent, Moist mucous membranes. NECK: Normal range of motion, supple without lymphadenopathy LUNGS: CTAB and equal. No wheezes rales or rhonchi. HEART: Regular rate and rhythm without murmurs ABDOMEN: Soft, no tenderness. No guarding, no rebound EXTREMITIES: Normal range of motion, no pitting edema. No cyanosis. NEUROLOGICAL: Cranial nerves grossly intact. Normal sensory/motor exams. PSYCH: Normal mood, normal affect. SKIN: Warm, Dry, normal turgor, no rashes or lesions noted - Genitourinary External exam: Normal Speculum exam: Vaginal discharge Vaginal bleeding: None Bimanuel exam: Cervical motion tender Course - Re-evaluation Re-evalutation: 08/25/19 19:05 39-year-old female presents emergency department with complaints of vaginal irritation. Denies fever vomiting diarrhea. Denies pain with void. Pelvic e xam completed no erythema no swelling noted. Patient does have vaginal yeast. Labs came back showing a glucose at 372, no anion gap. Patient does have a history of gestational diabetes. Her baby is now 6 months old. She reports she did have follow-up and nobody mentioned diabetes to her. She reports she did have a biscuit honey prior to arrival here. Will give patient 1 L fluid while waiting for results of her ultrasound. Patient was instructed on all results. She verbalized understanding. 08/25/19 17:30 08/25/19 17:30 MCV 86 fl (80-97) 08/25/19 17:30 MCH 28.6 pg (27.0-33.4) 08/25/19 17:30 MCHC 33.3 g/dL (32.0-36.0) 08/25/19 17:30 RDW 14.2 % (11.5-14.0) H 08/25/19 17:30 Seg Neutrophils % 39.3 % (42-78) L 08/25/19 17:30 Chloride 100 mmol/L (98-107) 08/25/19 17:30 Carbon Dioxide 23 mmol/L (22-30) 08/25/19 17:30 Anion Gap 14 (5-19) 08/25/19 17:30 Est GFR ( Amer) > 60 (>60) 08/25/19 17:30 Glucose 372 mg/dL (75-110) H 08/25/19 17:30 Calcium 10.1 mg/dL (8.4-10.2) 08/25/19 17:30 Total Bilirubin 0.5 mg/dL (0.2-1.3) 08/25/19 17:30 AST 20 U/L (14-36) 08/25/19 17:30 Alkaline Phosphatase 74 U/L (38-126) 08/25/19 17:30 Total Protein 7.7 g/dL (6.3-8.2) 08/25/19 17:30 Albumin 4.6 g/dL (3.5-5.0) 08/25/19 17:30 Serum HCG, Qual NEGATIVE (NEGATIVE) 08/25/19 17:30 Urine Color YELLOW 08/25/19 17:30 Urine Appearance CLEAR 08/25/19 17:30 Urine pH 5.0 (5.0-9.0) 08/25/19 17: Ur Specific [place] 1.033 08/25/19 17: Urine Protein NEGATIVE mg/dL (NEGATIVE) 08/25/19 17:30 Urine Glucose (UA) >=500 mg/dL (NEGATIVE) H 08/25/19 17:30 Urine Ketones NEGATIVE mg/dL (NEGATIVE) 08/25/19 17: Urine Blood MODERATE (NEGATIVE) H 08/25/19 17:30 Urine RBC (Auto) 0 /HPF 08/25/19 17:30 Transvaginal US 08/25/19 17:04 IMPRESSION: The uterus is normal. The ovaries could not be seen. 08/25/19 21:34 Patient has received a liter of fluids with 500 mg of metformin. Repeat Accu- Chek is 304. Patient denies symptoms. She is calm denies urinary frequency patient reports normal thirst. We discussed at length the importance of follow- up for evaluation of diabetes. Her mother does have diabetes. We instructed signs and symptoms of DKA. was at the bedside and verbalized understanding to everything we talked about also. Patient reports she will follow-up within 1 week. - Vital Signs Vital signs: Temp Pulse Resp BP Pulse Ox 97.9 F 102 H 17 146/81 H 98 08/25/19 21:38 08/25/19 21:38 08/25/19 21:38 08/25/19 21:38 08/25/19 21:38 - Laboratory Result Diagrams: 08/25/19 17:30 08/25/19 17:30 Laboratory results interpreted by me: 08/25/19 08/25/19 08/25/19 17:30 17:30 17:30 RDW 14.2 H Lymph % (Auto) 51.5 H Seg Neutrophils % 39.3 L VBG pCO2 Sodium 136.9 L Glucose 372 H POC Glucose Urine Glucose (UA) >=500 H Urine Blood MODERATE H 08/25/19 08/25/19 08/25/19 19:25 20:41 21:28 RDW Lymph % (Auto) Seg Neutrophils % VBG pCO2 34.9 L Sodium Glucose POC Glucose 309 H 304 H Urine Glucose (UA) Urine Blood - Diagnostic Test Radiology reviewed: Reports reviewed Procedures - Pelvic Exam Pelvic exam Cultures obtained: Yes Wet prep obtained: Yes Herpes culture obtained: No POC sent to lab: No Foreign body removed: No Bimanual exam performed: Yes Witnessed by: ángel MCINTOSHtaper machine - Discharge Clinical Impression: Vaginal irritation, Vaginal yeast infection Condition: Stable Disposition: HOME, SELF-CARE Instructions: Fluconazole ([facility]), Vaginal Yeast Infection ([facility]) Additional Instructions: *You have been evaluated for vaginal irritation, yeast infection, hyperglycemia *You have been treated with a dose of diflucan for your yeast infection *You have received one dose of metformin *Please follow-up with your primary care provider within 1 week for a full evaluation and recheck of your glucose *Monitor your diet as discussed *Take medication as prescribed *Return to ED for worsening condition, changes, needs, increased thirst urinary frequency, concerns Monitor your blood pressure. Your blood pressure was elevated today. This may be because you were anxious, in pain or because you need medication. It is important to follow up with your primary care provider for full evaluation. Prescriptions: Fluconazole [Diflucan] 150 mg PO ONCE PRN #1 tablet PRN Reason: Forms: Elevated Blood Pressure
[2019-08-25] MEDS ORDERED: NORMAL SALINE 1000 ML 1,000 ML IV ONE (19:06)
[2019-08-25 19:36] LABS: VENOUS BLOOD BASE EXCESS -4.2 mmol/L; VENOUS BLOOD HCO3 20.1 mmol/L (20-32); VENOUS BLOOD PCO2 34.9 mmHg (35-63); VENOUS BLOOD PH 7.38 (7.30-7.42)
[2019-08-25 20:22] LABS: CHLAM PCR NOT DETECTED (NOT DETECT)
[2019-08-25] MEDS ORDERED: METFORMIN HCL 500 MG TABLET PO ONE (20:49)
[2019-08-25] MEDS ORDERED: FLUCONAZOLE 100 MG TABLET PO ONE (21:19)
[2019-08-25 21:39] VITALS: BP 146/81
== END 2019-08-25 21:46 | disposition home or self-care (01) ==
LOC: ER 16:53
DX: R10.2 Pelvic and perineal pain (principal); B37.3 Candidiasis of vulva and vagina
CPT/HCPCS: 99284; 96360; 96361; 36415; 87210; 82962; 84703; 85025; 80053; 81001; 87491; 87591; 82803; 76830; 93976; J7030

== ENCOUNTER 2019-09-26 13:21 | Emergency (ER) | payer OTHER ==
[2019-09-26] MEDS ORDERED: ONDANSETRON HCL INJ/PF 4 MG/2 ML SDV IV ONE ×2 (13:32→15:53)
[2019-09-26] MEDS ORDERED: NORMAL SALINE 1000 ML 1,000 ML IV ONE ×2 (13:33→18:59)
--- NOTE | 2019-09-26 13:45 | ER Document Report ---
ED Medical Screen (RME) - General Chief Complaint: Abdominal Pain Stated Complaint: ABDOMINAL PAIN/VOMITING/DIARRHEA Time Seen by Provider: 09/26/19 13:31 TRAVEL OUTSIDE OF THE [place] IN LAST 30 DAYS: No - HPI Notes: 09/26/19 14:38 39-year-old female to the emergency department with complaints of upper abd ominal pain that began today with associated nausea, vomiting, diarrhea. She denies any fevers or chills. She denies any chance for . She denies any vaginal bleeding oR vaginal discharge. she denies any recent travel, recent antibiotic use, recent diet change. I performed a brief medical screening exam on the patient and determined that she needs further evaluation by me inside ER provider. I have ordered labs and medications attempt to expedite her care today. - Related Data Allergies/Adverse Reactions: No Known Allergies Allergy (Verified 09/26/19 13:26) Past Medical History - Social History Chew tobacco use (# tins/day): No Frequency of alcohol use: None Drug Abuse: None Past Surgical History: Reports: Hx Appendectomy, Hx Section - x2 Physical Exam - Vital signs Vitals: Temp Pulse Resp BP Pulse Ox 98.3 F 113 H 18 152/90 H 97 09/26/19 13:25 09/26/19 13:25 09/26/19 13:25 09/26/19 13:25 09/26/19 13:25 Course - Vital Signs Vital signs: Temp Pulse Resp BP Pulse Ox 98.3 F 113 H 18 152/90 H 97 09/26/19 13:25 09/26/19 13:25 09/26/19 13:25 09/26/19 13:25 09/26/19 13:25 - Laboratory Result Diagrams: 09/26/19 13:50 09/26/19 13:50 Laboratory results interpreted by me: 09/26/19 09/26/19 09/26/19 13:45 13:50 13:50 RDW 14.2 H Glucose 204 H Urine Glucose (UA) >=500 H Leukocyte Esterase Rfl TRACE H
[2019-09-26 14:10] LABS: ABSOLUTE EOSINOPHILS # (AUTO) 0.1 10^3/uL (0.0-0.6); ABSOLUTE LYMPHOCYTES (AUTO) 1.4 10^3/uL (0.5-4.7); ABSOLUTE MONOCYTES (AUTO) 0.6 10^3/uL (0.1-1.4); ABSOLUTE NEUT (AUTO) 5.7 10^3/uL (1.7-8.2); BASOPHILS % (AUTO) 0.3 % (0-2); HEMOGLOBIN 15.3 g/dL (12.0-15.5); MEAN CORPUSCULAR HEMOGLOBIN 29.5 pg (27.0-33.4); MEAN CORPUSCULAR HGB CONC 34.1 g/dL (32.0-36.0); MEAN CORPUSCULAR VOLUME 87 fl (80-97); MONOCYTES % (AUTO) 7.8 % (3-13); PLATELET COUNT 236 10^3/uL (150-450); RED CELL DISTRIBUTION WIDTH 14.2 % (11.5-14.0); SEGMENTED NEUTROPHILS % (AUTO) 72.9 % (42-78); TOTAL CELLS COUNTED % (AUTO) 100 %; WHITE BLOOD COUNT 7.8 10^3/uL (4.0-10.5)
[2019-09-26 14:14] LABS: APPEARANCE,URINE SLIGHTLY-CLOUDY; BILIRUBIN,URINE NEGATIVE (NEGATIVE); COLOR,URINE YELLOW; GLUCOSE, URINE >=500 mg/dL (NEGATIVE); KETONES,URINE NEGATIVE (NEGATIVE); PROTEIN,URINE NEGATIVE (NEGATIVE); UROBILINOGEN,URINE NEGATIVE mg/dL (<2.0)
[2019-09-26 14:33] LABS: ALBUMIN 4.7 g/dL (3.5-5.0); ALKALINE PHOSPHATASE 69 U/L (38-126); ANION GAP 12 (5-19); ASPARTATE AMINO TRANSFERASE 20 U/L (14-36); BLOOD UREA NITROGEN 11 mg/dL (7-20); CARBON DIOXIDE 23 mmol/L (22-30); CHLORIDE 103 mmol/L (98-107); GLUCOSE 204 mg/dL (75-110); POTASSIUM 4.3 mmol/L (3.6-5.0)
[2019-09-26] MEDS ORDERED: MORPHINE SULFATE 10 MG/ML INJ IV ONE (15:53)
--- NOTE | 2019-09-26 16:05 | ER Document Report ---
ED GI/ - General Chief Complaint: Abdominal Pain Stated Complaint: ABDOMINAL PAIN/VOMITING/DIARRHEA Time Seen by Provider: 09/26/19 13:31 Information source: Patient Notes: HPI: 39-year-old female with past medical history as recorded who presents today with some diffuse abdominal pain, mostly to the epigastric region. She denies any radiation. Nausea without vomiting. 5 episodes of nonbloody diarrhea. No history of Crohn's or ulcerative esophagitis. History of appendectomy. This was 5 years ago with no complications. Patient does have small children. No similar pathology. No dysuria, missed menstrual periods, or chest pain. No cough or shortness of breath. ROS: See HPI All other review of systems reviewed and otherwise negative Reviewed vital signs and nursing note as charted by RN. PHYSICAL EXAM: CONSTITUTIONAL: Alert and oriented and responds appropriately to questions. Well-appearing; well-nourished HEAD: Normocephalic; atraumatic EYES: Sclerae non-icteric ENT: Normal nose; no rhinorrhea; moist mucous membranes; pharynx without lesions noted NECK: Supple without meningismus; non-tender; no cervical lymphadenopathy, no masses CARD: Regular rate and rhythm; no murmurs; symmetric distal pulses RESP: Normal chest excursion without splinting or tachypnea; breath sounds clear and equal bilaterally; no wheezes, no rhonchi, no rales ABD/GI: Normal bowel sounds; non-distended; soft, mild tenderness to palpation of all 4 quadrants of the abdomen, mostly to the epigastric region. No rebound or guarding BACK: The back appears normal and is non-tender to palpation EXT: Normal ROM in all joints; non-tender to palpation; no edema SKIN: No acute lesions noted NEURO: CN 2-12 intact; 5/5 bilateral upper and lower extremity strength with sensation intact to light touch PSYCH: The patient's mood and manner are appropriate. Grooming and personal hygiene are appropriate. TRAVEL OUTSIDE OF THE [place] IN LAST 30 DAYS: No - Related Data Allergies/Adverse Reactions: No Known Allergies Allergy (Verified 09/26/19 13:26) Past Medical History - Social History Smoking Status: Never Smoker Chew tobacco use (# tins/day): No Frequency of alcohol use: None Drug Abuse: None Family History: DM - MOTHER Patient has suicidal ideation: No Patient has homicidal ideation: No Past Surgical History: Reports: Hx Appendectomy, Hx Section - x2 Physical Exam - Vital signs Vitals: Temp Pulse Resp BP Pulse Ox 98.3 F 113 H 18 152/90 H 97 09/26/19 13:25 09/26/19 13:25 09/26/19 13:25 09/26/19 13:25 09/26/19 13:25 Course - Re-evaluation Re-evalutation: The history and physical we were initially ordered liver panel, lipase, basic labs, urinalysis, and reassess. I would like to assess the possibility of trans aminitis or pancreatitis. No lower abdominal tenderness. Vital signs as recorded. 09/26/19 16:04 Labs initially as recorded. 09/26/19 16:58 Labs and urine analysis as recorded. Patient's pain is improved. 09/26/19 18:[address] scan as recorded. Vital signs are stable. Patient's pain is improved. Patient will be discharged home with strict return precautions and follow-up with the primary care provider. I do not believe any other imaging or laboratory work is necessary at this moment. - Vital Signs Vital signs: Temp Pulse Resp BP Pulse Ox 98.3 F 113 H 18 152/90 H 97 09/26/19 13:25 09/26/19 13:25 09/26/19 13:25 09/26/19 13:25 09/26/19 13:25 - Laboratory Result Diagrams: 09/26/19 13:50 09/26/19 13:50 Laboratory results interpreted by me: 09/26/19 09/26/19 09/26/19 13:45 13:50 13:50 RDW 14.2 H Glucose 204 H Urine Glucose (UA) >=500 H Leukocyte Esterase Rfl TRACE H Discharge - Discharge Clinical Impression: Abdominal pain Qualifiers: Abdominal location: generalized Qualified Code(s): R10.84 - Generalized abdominal pain Diarrhea Qualifiers: Diarrhea type: unspecified type Qualified Code(s): R19.7 - Diarrhea, uns pecified Condition: Good Disposition: HOME, SELF-CARE Additional Instructions: Come back immediately for any increased pain, change in location or quality of pain, fevers or persistent vomiting, blood in the vomit or diarrhea, or any other acute problems. Please follow-up with the primary care physician as discussed. Prescriptions: Hydrocodone/Acetaminophen [[place] 5-325 mg Tablet] 1 tab PO Q8H #12 tablet Ondansetron [Zofran Odt 4 mg Tablet] 1 tab PO Q6H #15 tab.rapdis
--- NOTE | 2019-09-26 18:45 | RADIOLOGY REPORT (SQ) ---
EXAM DESCRIPTION: CT ABD/PELVIS WITH IV ONLY COMPLETED DATE/TIME: 09/26/2019 6:22 pm REASON FOR STUDY: 11; abdom pain/vomiting COMPARISON: None. TECHNIQUE: CT scan of the abdomen and pelvis performed using helical scanning technique with dynamic intravenous contrast injection. No oral contrast. Images reviewed with lung, soft tissue, and bone w indows. Reconstructed coronal and sagittal MPR images reviewed. Delayed images for evaluation of the urinary system also acquired. All images stored on PACS. All CT scanners at this facility use dose modulation, iterative reconstruction, and/or weight based d osing when appropriate to reduce radiation dose to as low as reasonably achievable (ALARA). [facility]: Dose Right [facility]: CareDose [facility]: Dose Right [facility]: Teradose 4D [facility]: Loomio CONTRAST TYPE AND DOSE: contrast/concentration: Isovue 350.00 mg/ml; Total Contrast Delivered: 100.0 ml; Total Saline Delivered: 52.9 ml RENAL FUNCTION: None required. The patient is less than 50 years old. RADIATION DOSE: CT Rad equipment meets quality standard of care and radiation dose reduction techniq ues were employed. CTDIvol: 30.9 - 31.0 mGy. DLP: 3508 mGy-cm.. LIMITATIONS: None. FINDINGS: LOWER CHEST: No significant findings. LIVER: Normal size. No enhancing masses. No dilated ducts. SPLEEN: Normal size. No focal lesions. PANCREAS: No masses identified. No significant calcifications. No adjacent inflammation or peripancre atic fluid collections. Pancreatic duct not dilated. GALLBLADDER: No calcified stones. No inflammatory changes to suggest cholecystitis. ADRENAL GLANDS: No significant masses. RIGHT KIDNEY AND URETER: No cysts identified. No solid masses identified. No calcified stones. No hyd ronephrosis or hydroureter. LEFT KIDNEY AND URETER: No cysts identified. No solid masses identified. No calcified stones. No hydr onephrosis or hydroureter. AORTA AND VESSELS: No aneurysm. No dissection. Renal arteries, SMA, celiac without significant stenos is. RETROPERITONEUM: No bulky retroperitoneal adenopathy. BOWEL AND PERITONEAL CAVITY: No obstruction or inflammatory changes. No free fluid. APPENDIX: Surgically absent. PELVIS: No mass. No free fluid. Unremarkable bladder. ABDOMINAL WALL: No masses. No hernias. BONES: No acute findings. OTHER: No other significant finding. IMPRESSION: NO ACUTE FINDINGS IN THE ABDOMEN OR PELVIS ON CT SCAN WITH IV CONTRAST. TECHNICAL DOCUMENTATION: JOB ID: [id number]-72 Quality ID # [id number]: Final reports with documentation of one or more dose reduction techniques (e.g., Au tomated exposure control, adjustment of the mA and/or kV according to patient size, use of iterative reconstruction technique) 2010 [employer]- All Rights Reserved Reading location - IP/workstation name: [email or web address]
[2019-09-26 20:02] VITALS: BP 122/75
== END 2019-09-26 20:09 | disposition home or self-care (01) ==
LOC: ER 13:21
DX: R10.84 Generalized abdominal pain (principal); R19.7 Diarrhea, unspecified; R11.10 Vomiting, unspecified
CPT/HCPCS: 36415; 87086; 83690; 85025; 81025; 80053; 81001; 74177; J2270; J2405; J7030; 96361; 96374; 96375; 99284

== ENCOUNTER 2020-02-02 10:32 | Emergency (ER) | payer OTHER ==
--- NOTE | 2020-02-02 11:04 | ER Document Report ---
ED Medical Screen (RME) - General Chief Complaint: Chest Pain Stated Complaint: CHEST PAIN,HEADACHE Time Seen by Provider: 02/02/20 11:02 Mode of Arrival: Ambulatory Information source: Patient - This is a 39-year-old female presented to the emergency room today stating she had right-sided chest pain with radiation down the arm this is been going on intermittently for about a week she also noticed last night she was fairly hypertensive for her at 150/100. No diaphoresis at this point of time. TRAVEL OUTSIDE OF THE [place] IN LAST 30 DAYS: No - Related Data Allergies/Adverse Reactions: No Known Allergies Allergy (Verified 02/02/20 10:50) Past Medical History - Social History Chew tobacco use (# tins/day): No Frequency of alcohol use: None Drug Abuse: None Past Surgical History: Reports: Hx Appendectomy, Hx Section - x2 Physical Exam - HEENT Head: Normocephalic, Atraumatic Eyes: Normal Pupils: PERRL - Cardiovascular Rhythm: Regular Heart sounds: Normal auscultation Murmur: No
[2020-02-02 11:44] LABS: ABSOLUTE EOSINOPHILS # (AUTO) 0.1 10^3/uL (0.0-0.6); ABSOLUTE LYMPHOCYTES (AUTO) 2.7 10^3/uL (0.5-4.7); ABSOLUTE MONOCYTES (AUTO) 0.4 10^3/uL (0.1-1.4); ABSOLUTE NEUT (AUTO) 2.4 10^3/uL (1.7-8.2); BASOPHILS % (AUTO) 0.2 % (0-2); EOSINOPHILS % (AUTO) 2.4 % (0-6); HEMATOCRIT 43.5 % (36.0-47.0); HEMOGLOBIN 15.2 g/dL (12.0-15.5); LYMPHOCYTES % (AUTO) 47.2 % (13-45); MEAN CORPUSCULAR HEMOGLOBIN 30.9 pg (27.0-33.4); MEAN CORPUSCULAR VOLUME 88 fl (80-97); MONOCYTES % (AUTO) 7.2 % (3-13); PLATELET COUNT 237 10^3/uL (150-450); RED BLOOD COUNT 4.93 10^6/uL (3.72-5.28); RED CELL DISTRIBUTION WIDTH 13.6 % (11.5-14.0); TOTAL CELLS COUNTED % (AUTO) 100 %; WHITE BLOOD COUNT 5.7 10^3/uL (4.0-10.5)
[2020-02-02 12:05] LABS: ALBUMIN 4.3 g/dL (3.5-5.0); ALKALINE PHOSPHATASE 61 U/L (38-126); ANION GAP 8 (5-19); ASPARTATE AMINO TRANSFERASE 19 U/L (14-36); BILIRUBIN,TOTAL 0.6 mg/dL (0.2-1.3); BLOOD UREA NITROGEN 12 mg/dL (7-20); CALCIUM 9.7 mg/dL (8.4-10.2); CARBON DIOXIDE 27 mmol/L (22-30); CHLORIDE 103 mmol/L (98-107); CREATINE KINASE 109 U/L (30-135); GLUCOSE 268 mg/dL (75-110); POTASSIUM 4.6 mmol/L (3.6-5.0); TOTAL PROTEIN 7.2 g/dL (6.3-8.2)
[2020-02-02 12:16] LABS: CREATINE KINASE MB 0.46 ng/mL (<4.55)
[2020-02-02 12:17] LABS: TROPONIN I < 0.012 ng/mL
--- NOTE | 2020-02-02 12:47 | RADIOLOGY REPORT (SQ) ---
EXAM DESCRIPTION: CHEST SINGLE VIEW COMPLETED DATE/TIME: 02/02/2020 12:27 pm REASON FOR STUDY: CP COMPARISON: None. EXAM PARAMETERS: NUMBER OF VIEWS: One view. TECHNIQUE: Single frontal radiographic view of the chest acquired. RADIATION DOSE: NA LIMITATIONS: None. FINDINGS: LUNGS AND PLEURA: No opacities, masses or pneumothorax. No pleural effusion. MEDIASTINUM AND HILAR STRUCTURES: No masses. Contour normal. HEART AND VASCULAR STRUCTURES: Heart normal in size. Normal vasculature. BONES: No acute findings. HARDWARE: None in the chest. OTHER: No other significant finding. IMPRESSION: NO ACUTE RADIOGRAPHIC FINDING IN THE CHEST. TECHNICAL DOCUMENTATION: JOB ID: [id number] 2010 [employer]- All Rights Reserved Reading location - IP/workstation name: [email or web address]
--- NOTE | 2020-02-02 13:00 | ER Document Report ---
ED General - General Chief Complaint: Chest Pain Stated Complaint: CHEST PAIN,HEADACHE Time Seen by Provider: 02/02/20 11:02 Mode of Arrival: Ambulatory TRAVEL OUTSIDE OF THE [place] IN LAST 30 DAYS: No - HPI Notes: Patient is a 39-year-old female with history of gestational hypertension in the past, not currently on any medicines, presents complaining of having right-sided chest pain that is sharp in nature and will occasionally radiate to her right arm. Patient states that this pain has been relatively constant. Patient states that she can move her arm and the pain will worsen to her chest. No recent illness. Denies drug allergies. Denies any prolonged immobilization, distance travel, recent surgery/trauma, personal cancer history, smoking, or previous DVT/PE. Denies any headache, fever, neck pain, URI, sore throat, palpitations, syncope, cough, shortness of breath, wheeze, dyspnea, abdominal pain, nausea/vomiting/diarrhea, urinary retention, dysuria, hematuria, loss of control of bowel or bladder, numbness/tingling, saddle anesthesia, muscle paralysis/weakness, or rash. - Related Data Allergies/Adverse Reactions: No Known Allergies Allergy (Verified 02/02/20 10:50) Past Medical History - Social History Smoking Status: Never Smoker Chew tobacco use (# tins/day): No Frequency of alcohol use: None Drug Abuse: None Family History: DM - MOTHER Patient has suicidal ideation: No Patient has homicidal ideation: No Past Surgical History: Reports: Hx Appendectomy, Hx Section - x2 Review of Systems - Review of Systems -: Yes All other systems reviewed and negative Physical Exam - Vital signs Vitals: Temp Pulse Resp BP Pulse Ox 98.0 F 91 20 148/90 H 97 02/02/20 10:50 02/02/20 10:50 02/02/20 10:50 02/02/20 10:50 02/02/20 10:50 - Notes Notes: PHYSICAL EXAMINATION: GENERAL: Well-appearing, well-nourished and in no acute distress. HEAD: Atraumatic, normocephalic. EYES: Pupils equal round and reactive to light, extraocular movements intact, sclera anicteric, conjunctiva are normal. ENT: Nares patent and without discharge. oropharynx clear without exudates. No tonsilar hypertrophy or erythema. Moist mucous membranes. NECK: Normal range of motion, supple without lymphadenopathy Chest: + reproducible tenderness to palpation of the rt pectoral area and reproducible with arm extension/abduction. LUNGS: Breath sounds clear to auscultation bilaterally and equal. No wheezes rales or rhonchi. HEART: Regular rate and rhythm without murmurs, rubs, gallops. ABDOMEN: Soft, nontender, nondistended abdomen. No guarding, no rebound. Normal bowel sounds present. No CVA tenderness bilaterally. Musculoskeletal: FROM to passive/active. Strength 5+/5. Yaneth neg. No asymmetry to LE's. Extremities: No cyanosis, clubbing, or edema b/l. Peripheral pulses 2+. Capillary refill less than 3 seconds. NEUROLOGICAL: Normal speech, normal gait. PSYCH: Normal mood, normal affect. SKIN: Warm, Dry, normal turgor, no rashes or lesions noted. Course - Re-evaluation Re-evalutation: 02/02/20 15:56 Patient is an afebrile, well-hydrated 39-year-old female who presents to the ED with chest wall pain. Vitals are acceptable without any significant tachycardia, tachypnea, or hypoxia. PE is otherwise unremarkable aside from the reproducible lateral chest wall tenderness. Patient is nontoxic-appearing and is tolerating p.o. without any difficulties. CBC, CMP, EKG/cardiac enzymes 2, chest x-ray are all unremarkable for any acute pathology. Patient has a heart score of 1, Wells score of 0. Patient does not have any dyspnea or shortness of breath. Patient's presentation and symptomatology creates low suspicion for ACS, PE, pneumothorax, pericarditis, dissection, respiratory compromise, severe dehydration, sepsis, meningitis, or other systemic emergent condition at this time. Patient is aware that this condition can change from initial presentation and she needs to monitor symptoms closely and seek medical attention for any acute changes. Pt is feeling better after tylenol/toradol and would like to go home. Recommend conservative measures for symptoms. Recheck with your PCM in 2-3 days. Consider consult with Cardiology. Return to the ED with any worsening /concerning symptoms otherwise as reviewed in discharge. Patient is in agreement. - Vital Signs Vital signs: Temp Pulse Resp BP Pulse Ox 98.0 F 91 34 H 154/104 H 100 02/02/20 10:50 02/02/20 10:50 02/02/20 15:01 02/02/20 15:01 02/02/20 15:01 - Laboratory Result Diagrams: 02/02/20 11:23 02/02/20 11:23 Laboratory results interpreted by me: 02/02/20 02/02/20 11:23 11:23 Lymph % (Auto) 47.2 H Glucose 268 H Discharge - Discharge Clinical Impression: Chest wall pain Condition: Stable Disposition: HOME, SELF-CARE Instructions: Chest Wall Pain ([facility]) Additional Instructions: Maintain adequate fluid and food intake Take home medications as directed Low sodium/fat diet Exercise regularly Weight control Monitor blood pressure daily and keep a log Monitor symptoms for any acute changes Recheck with your PCM in 2-3 days Consider a follow-up with cardiology Return to the ED with any worsening symptoms and/or development of fever, headache, chest pain, palpitations, syncope, shortness of breath, trouble breathing, abdominal pain, n/v/d, blood in stool/urine, loss of control of bowel/bladder, urinary retention, muscle weakness/paralysis, numbness/tingling, or other worsening symptoms that are concerning to you. Forms: Elevated Blood Pressure Referrals: ERNIE YUNG MD [ACTIVE STAFF] - Follow up as needed [facility] [Provider Group] - Follow up as needed
[2020-02-02] MEDS ORDERED: ACETAMINOPHEN 325 MG TABLET PO ONE (14:42)
[2020-02-02] MEDS ORDERED: IBUPROFEN 600 MG TABLET PO ONE (14:42)
[2020-02-02] MEDS ORDERED: KETOROLAC TROMETHAMINE INJ/PF 30 MG/1 ML SDV IV ONE (15:25)
[2020-02-02 16:26] VITALS: BP 151/106
--- NOTE | 2020-02-02 18:27 | EKG REPORT ---
SEVERITY:- NORMAL ECG - SINUS RHYTHM : Confirmed by: Gail Phan MD 02-Feb-2020 18:26:35
== END 2020-02-02 16:31 | disposition home or self-care (01) ==
LOC: ER 10:32
DX: R07.89 Other chest pain (principal); R51 Headache; R03.0 Elevated blood-pressure reading, without diagnosis of hypertension
CPT/HCPCS: 93005; 99284; 96374; 36415; 82553; 82550; 85025; 80053; 84484; 71045; 93010; J1885